=== PATIENT | male | born 1965 | race Caucasian/White ===

== ENCOUNTER 2017-12-07 05:47 | Emergency (ER) | payer MEDICARE, MEDICAID ==
[~2017-12-07] VITALS: Ht 172.7 cm; Wt 81.6 kg
[2017-12-07 06:35] LABS: Basophils # (auto) 0.1 uL; Basophils % (auto) 0.9 % (0.0-2.0); Eosinophils # (auto) 0.4 uL; Eosinophils % (auto) 3.8 % (0.0-7.0); Hematocrit 51.3 % (41.0-53.0); Lymphocytes % (auto) 21.3 % (10.0-50.0); Mean Corpuscular Hemoglobin 28.4 pg (28.0-32.0); Mean Corpuscular Hgb Conc. 33.2 g/dL (32.0-36.0); Mean Corpuscular Volume 85.5 fL (80.0-100.0); Monocytes # (auto) 0.7 uL; Monocytes % (auto) 7.2 % (0.0-12.0); Neutrophils # (auto) 6.3 uL; Neutrophils % (auto) 66.8 % (37.0-80.0); Nucleated Red Blood Cells % 0.1 %; Platelet Count (auto) 211 10^3/uL (140-450); Red Cell Distribution Width 17.7 % (11.8-14.3); White Blood Cell 9.4 10^3/uL (4.4-10.8)
[2017-12-07] MEDS ORDERED: SODIUM CHLORIDE 0.9% 1,000 ML IV ONE ×3 (06:45→07:24)
[2017-12-07] MEDS ORDERED: NALBUPHINE HCL 10 MG/1ml INJECTION ONE (06:52)
[2017-12-07] MEDS ORDERED: PROMETHAZINE HCL 25 MG/ML 1ML ONE (06:52)
[2017-12-07 06:54] LABS: Alanine Aminotransferase 48 U/L (16-61); Albumin 3.9 g/dL (3.4-5.0); Amylase 161 U/L (25-115); Anion Gap 11 (5-15); Aspartate Aminotransferase 21 U/L (15-37); BUN/Creatinine Ratio 9.4; Blood Urea Nitrogen 9 mg/dL (7-18); Calcium 8.9 mg/dL (8.5-10.1); Carbon Dioxide 21 mmol/L (21-32); Chloride 108 mmol/L (98-107); GFR African American 105 mL/min; GFR Non-African American 87 mL/min; Glucose 128 mg/dL (74-106); Lipase 288 U/L (73-393); Potassium 3.7 mmol/L (3.5-5.1); Sodium 140 mmol/L (136-145)
[2017-12-07] MEDS ORDERED: diphenhdrAMINE HCL 50 MG/1 ML VL ONE (06:58)
[2017-12-07 06:59] LABS: Alkaline Phosphatase 145 U/L (45-117); Bilirubin, Total 0.4 mg/dL (0.2-1.0); Total Protein 7.5 g/dL (6.4-8.2)
[2017-12-07] MEDS ORDERED: PROMETHAZINE HCL 25 MG/ML 1ML IV ONE ×2 (07:00→08:15)
[2017-12-07] MEDS ORDERED: NALBUPHINE HCL 10 MG/1ml INJECTION IV ONE (07:00)
[2017-12-07] MEDS ORDERED: diphenhdrAMINE HCL 50 MG/1 ML VL IV ONE (07:15)
[2017-12-07] MEDS ORDERED: LORazepam 2MG/ML-1ML VIAL IV ONE (07:30)
[2017-12-07] MEDS ORDERED: IOHEXOL 300 MG/ML 100ML BOTTLE IJ ONE (07:39)
[2017-12-07] MEDS ORDERED: MEPERIDINE HCL (25 MG/ML) 1ML VIAL IM ONE (08:45)
[2017-12-07 09:53] VITALS: BP 137/83
== END 2017-12-07 17:22 | disposition home or self-care (01) ==
LOC: EDBD 05:47 → ER 05:53
DX: G89.29 Other chronic pain (principal); R10.13 Epigastric pain; J44.9 Chronic obstructive pulmonary disease, unspecified; Z90.49 Acquired absence of other specified parts of digestive tract
CPT/HCPCS: 36415; 71045; 74177; 80053; 82150; 83690; 83880; 84484; 85025; 93005; 96361; 96372; 96374; 96375; 99285; J1200; J2060; J2175; J2300; J2550; J7030; Q9967